=== PATIENT | male | born 1995 | race African-American/Black ===

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

== ENCOUNTER 2017-05-11 07:21 | Emergency (ER) | payer OTHER ==
[2017-05-11 08:23] LABS: Hematocrit 41 % (42-52); Hemoglobin 13.8 g/dl (14.0-18.0); Mean Corpuscular HGB Conc 33 g/dl (31-36); Mean Corpuscular Hemoglobin 26 pg (27-31); Mean Corpuscular Volume 79 fL (80-94); Mean Platelet Volume 8 um3 (7.4-10.4); Red Blood Count 5.24 10^6/ul (4.0-5.4); Red Cell Distribution Width 13 % (10.5-15); White Blood Count 3.6 10^3/ul (3.5-10.8)
--- NOTE | 2017-05-11 08:24 | RAD ---
INDICATION: Chest pain COMPARISON: Comparison chest x-ray February 03, 2016 TECHNIQUE: PA and lateral views of the chest were obtained. FINDINGS: The heart and mediastinum are normal in size and contour. The lungs are grossly clear. There is no evidence of large pleural effusion. Similar to the prior chest x-ray the thoracolumbar spine exhibits a proximally 16 degrees of dextroconvex scoliosis with the apex at the T11 vertebral body. There is no radiographic evidence of free air beneath the diaphragm IMPRESSION: STABLE THORACOLUMBAR SCOLIOSIS WITHOUT RADIOGRAPHIC EVIDENCE OF ACUTE CARDIOPULMONARY ABNORMALITY.
[2017-05-11 08:38] LABS: Albumin 4.7 g/dL (3.2-5.2); Calcium 9.9 mg/dL (8.6-10.3); EGFR African American 95.7 (>60); EGFR Non-African American 74.4 (>60); Globulin 2.9 g/dL (2-4); Potassium 3.4 mmol/L (3.5-5.0); Total Bilirubin 0.6 mg/dL (0.2-1.0); Total Protein 7.6 g/dL (6.4-8.9)
[2017-05-11] MEDS ORDERED: Potassium Chlor TAB* 20 MEQ TAB.ER PO ONE (09:15)
[2017-05-11] MEDS ORDERED: Ketorolac INJ* 30 MG/ML 1 ML VIAL IV PUSH ONE (09:16)
[2017-05-11 10:02] VITALS: BP 120/50
--- NOTE | 2017-05-14 13:32 | ED ---
Aguila Chavez Thomas, scribed for Keith Miranda MD on 05/11/17 at 0743 . HPI Chest Pain - HPI Summary HPI Summary: The pt is a 21 y/o M presenting to the ED c/o CP that began two days ago and woke him up from sleeping. The pain is diffuse. The pain is sporadic. The pain is described as sharp. The pain is aggravated by deep breaths. It is alleviated by nothing. 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 Pt denies myalgia, nasal discharge, or cold symptoms. - History of Current Complaint Chief Complaint: EDChestPainROMI Time Seen by Provider: 05/11/17 07:28 Hx Obtained From: Patient Onset/Duration: Started Days Ago - 2, Still Present Timing: Intermittent Current Severity: None Pain Intensity: 0 Pain Scale Used: 0-10 Numeric Chest Pain Location: Diffuse Chest Pain Radiates: No Character: Sharp/Stabbing Aggravating Factor(s): Deep Breaths Alleviating Factor(s): Nothing Associated Signs and Symptoms: Positive: Chest Pain. Negative: Other: - myalgia , nasal discharge, cold symptoms - Allergy/Home Medications Allergies/Adverse Reactions: Allergies Allergy/AdvReac Type Severity Reaction Status Date / Time No Known Allergies Allergy Verified 02/03/16 07:32 Home Medications: Home Medications NK [No Home Medications Reported] 05/11/17 [History Confirmed 05/11/17] PMH/Surg Hx/FS Hx/Imm Hx Previously Healthy: Yes Endocrine/Hematology History: Denies: Hx Anemia Cardiovascular History: Denies: Hx Hypertension, Hx Myocardial Infarction Respiratory History: Denies: Hx Asthma - Surgical History Surgery Procedure, Year, and Place: none Infectious Disease History: No Infectious Disease History: Denies: Traveled Outside the [place] in Last 30 Days - Family History Known Family History: Positive: Other - Patient denies relevant FHx - Social History Occupation: Student Lives: Dormitory/Roommates Alcohol Use: None Hx Substance Use: No Substance Use Type: Reports: None Hx Tobacco Use: No Smoking Status (MU): Never Smoked Tobacco Review of Systems Negative: Other - cold symptoms Negative: Nasal Discharge Positive: Chest Pain Negative: Myalgia All Other Systems Reviewed And Are Negative: Yes Physical Exam - Summary Physical Exam Summary: VITAL SIGNS: Reviewed. GENERAL: Patient is a well-developed and nourished male who is lying comfortable in the stretcher. Patient is not in any acute respiratory distress. HEAD AND FACE: No signs of trauma. No ecchymosis, hematomas or skull depressions. No sinus tenderness. EYES: PERRLA, EOMI x 2, No injected conjunctiva, no nystagmus. EARS: Hearing grossly intact. Ear canals and tympanic membranes are within normal limits. MOUTH: Oropharynx within normal limits. NECK: Supple, trachea is midline, no adenopathy, no JVD, no carotid bruit, no c- spine tenderness, neck with full ROM. CHEST: Symmetric, no tenderness at palpation LUNGS: Clear to auscultation bilaterally. No wheezing or crackles. CVS: Regular rate and rhythm, S1 and S2 present, no murmurs or gallops appreciated. ABDOMEN: Soft, non-tender. No signs of distention. No rebound no guarding, and no masses palpated. Bowel sounds are normal. BACK: Scoliosis is noted. EXTREMITIES: FROM in all major joints, no edema, no cyanosis or clubbing. NEURO: Alert and oriented x 3. No acute neurological deficits. Speech is normal and follows commands. SKIN: Dry and warm Triage Information Reviewed: Yes Vital Signs On Initial Exam: Initial Vitals Temp Pulse Resp BP Pulse Ox 98.8 F 78 18 148/66 100 05/11/17 07:25 05/11/17 07:25 05/11/17 07:25 05/11/17 07:25 05/11/17 07:25 Vital Signs Reviewed: Yes Diagnostics - Vital Signs Vital Signs Temp Pulse Resp BP Pulse Ox 05/11/17 07:25 98.8 F 78 18 148/66 100 - Laboratory Lab Results: Lab Results 05/11/17 05/11/17 05/11/17 Range/Units 08:10 08:10 08:10 WBC 3.6 (3.5-10.8) 10^3/ul RBC 5.24 (4.0-5.4) 10^6/ul Hgb 13.8 L (14.0-18.0) g/dl Hct 41 L (42-52) % MCV 79 L (80-94) fL MCH 26 L (27-31) pg MCHC 33 (31-36) g/dl RDW 13 (10.5-15) % Plt Count 205 (150-450) 10^3/ul MPV 8 (7.4-10.4) um3 Neut % (Auto) 37.9 L (38-83) % Lymph % (Auto) 46.6 (25-47) % [place] % (Auto) 12.8 H (1-9) % Eos % (Auto) 1.6 (0-6) % Baso % (Auto) 1.1 (0-2) % Absolute Neuts (auto) 1.4 L (1.5-7.7) 10^3/ul Absolute Lymphs (auto) 1.7 (1.0-4.8) 10^3/ul Absolute Monos (auto) 0.5 (0-0.8) 10^3/ul Absolute Eos (auto) 0.1 (0-0.6) 10^3/ul Absolute Basos (auto) 0 (0-0.2) 10^3/ul Absolute Nucleated RBC 0.01 10^3/ul Nucleated RBC % 0.2 D-Dimer, Quantitative < 200 (Less Than 230) ng/mL Sodium 137 (133-145) mmol/L Potassium 3.4 L (3.5-5.0) mmol/L Chloride 100 L (101-111) mmol/L Carbon Dioxide 28 (22-32) mmol/L Anion Gap 9 (2-11) mmol/L BUN 10 (6-24) mg/dL Creatinine 1.25 H (0.67-1.17) mg/dL Est GFR ( Amer) 95.7 (>60) Est GFR (Non-Af Amer) 74.4 (>60) BUN/Creatinine Ratio 8.0 (8-20) Glucose 96 (70-100) mg/dL Calcium 9.9 (8.6-10.3) mg/dL Total Bilirubin 0.60 (0.2-1.0) mg/dL AST 16 (13-39) U/L ALT 9 (7-52) U/L Alkaline Phosphatase 79 (34-104) U/L Total Creatine Kinase 220 (10-223) U/L Total Protein 7.6 (6.4-8.9) g/dL Albumin 4.7 (3.2-5.2) g/dL Globulin 2.9 (2-4) g/dL Albumin/Globulin Ratio 1.6 (1-3) Result Diagrams: 05/11/17 08:10 05/11/17 08:10 Lab Statement: Any lab studies that have been ordered have been reviewed, and results considered in the medical decision making process. - Radiology CXR Xray Interpretation: No Acute Changes - STABLE THORACOLUMBAR SCOLIOSIS WITHOUT RADIOGRAPHIC EVIDENCE OF ACUTE CARDIOPULMONARY ABNORMALITY. ED physician has reviewed this report and agrees. Radiology Interpretation Completed By: Radiologist - EKG 07:47 Cardiac Rate: Bradycardia EKG Rhythm: Sinus Bradycardia EKG Interpretation: 58 BPM. Normal axis. Similar to previous EKG on 02/03/16. Chest Pain Course/Dx - Course Assessment/Plan: The pt is a 21 y/o M presenting to the ED c/o CP that began two days ago and woke him up from sleeping. The pain is diffuse. The pain is sporadic. The pain is described as sharp. The pain is aggravated by deep breaths. It is alleviated by nothing. 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 Pt denies myalgia, nasal discharge, or cold symptoms. Test results show a slight anemia, potassium of 3.4, and D-dimer less than 200, therefore there is no suspicion for pulmonary embolism. CXR shows STABLE THORACOLUMBAR SCOLIOSIS WITHOUT RADIOGRAPHIC EVIDENCE OF ACUTE CARDIOPULMONARY ABNORMALITY. In the ED course, the patient was given Toradol for the pain, hydrated, and his symptoms improved. Therefore, the patient will be discharged home with follow up by primary care provider. The patient is hemodynamically stable and alert and oriented x3. - Diagnoses Provider Diagnoses: Chest pain Discharge - Discharge Plan Condition: Stable Disposition: HOME Patient Education Materials: Chest Pain (ED) [place] [facility] [place] - 3 Days Additional Instructions: Follow up at [facility] in three days. Return to the emergency department for any new or worsening symptoms. The documentation as recorded by the Aguila young Thomas accurately reflects the service I personally performed and the decisions made by Ruben coronado Walter, MD.
== END 2017-05-11 10:01 | disposition home or self-care (01) ==
LOC: ED 07:21
DX: R07.89 Other chest pain (principal); R00.1 Bradycardia, unspecified; M41.9 Scoliosis, unspecified
CPT/HCPCS: 36415; 71020; 80053; 82550; 85025; 85379; 93005; 96374; 99284; A9270-GY; J1885

== ENCOUNTER 2018-11-15 13:25 | Emergency (ER) | payer OTHER ==
[2018-11-15 15:14] VITALS: BP 129/58
--- NOTE | 2018-11-15 17:18 | ED ---
HPI Chest Pain - HPI Summary HPI Summary: Patient presenting with pain to right lower rib cage since yesterday. Patient states that he was lying on the couch yesterday and feels he strained a muscle to his right lower ribs. Patient states this has happened before. Patient states that pain is worse with moving and touching area. Patient states he took a dose of Tylenol and pain has improved. Patient states he wanted to get checked out to make sure everything is okay. Patient otherwise denies abdominal pain, fever, vomiting, diarrhea, cough, fever, sore throat, ear pain. Symptoms are mild in severity. Touching affected area and movement makes symptoms worse. Rest and Tylenol makes sxs better. - History of Current Complaint Chief Complaint: EDAbdPain Time Seen by Provider: 11/15/18 14:16 Hx Obtained From: Patient Pain Intensity: 3 Pain Scale Used: 0-10 Numeric - Allergy/Home Medications Allergies/Adverse Reactions: Allergies Allergy/AdvReac Type Severity Reaction Status Date / Time No Known Allergies Allergy Verified 11/15/18 13:30 PMH/Surg Hx/FS Hx/Imm Hx Previously Healthy: Yes Endocrine/Hematology History: Denies: Hx Anemia Cardiovascular History: Denies: Hx Hypertension, Hx Myocardial Infarction Respiratory History: Denies: Hx Asthma - Surgical History Surgery Procedure, Year, and Place: none Infectious Disease History: No Infectious Disease History: Denies: Traveled Outside the [place] in Last 30 Days - Family History Known Family History: Positive: None, Other - Patient denies relevant FHx, Non- Contributory - Social History Occupation: Student Lives: Dormitory/Roommates Alcohol Use: None Hx Substance Use: No Substance Use Type: Reports: None Hx Tobacco Use: No Smoking Status (MU): Never Smoked Tobacco Review of Systems Constitutional: Negative Negative: Fever, Chills ENT: Negative Cardiovascular: Negative Negative: Palpitations, Chest Pain Respiratory: Negative Negative: Shortness Of Breath, Cough Gastrointestinal: Negative Negative: Abdominal Pain, Vomiting, Diarrhea, Nausea Genitourinary: Negative Positive: Other - pain to right lower ribcage Skin: Negative Negative: Bruising Neurological: Negative All Other Systems Reviewed And Are Negative: Yes Physical Exam Triage Information Reviewed: Yes Vital Signs On Initial Exam: Initial Vitals Temp Pulse Resp BP Pulse Ox 98.8 F 78 16 122/73 97 11/15/18 13:27 11/15/18 13:27 11/15/18 13:27 11/15/18 13:27 11/15/18 13:27 Vital Signs Reviewed: Yes Appearance: Positive: Well-Appearing - Pt. sitting up in bed in NAD. Skin: Positive: Warm, Dry Head/Face: Positive: Normal Head/Face Inspection Eyes: Positive: Normal, EOMI, KRISHNA, Conjunctiva Clear ENT: Positive: Pharynx normal, TMs normal Neck: Positive: Supple Respiratory/Lung Sounds: Positive: Clear to Auscultation, Breath Sounds Present Cardiovascular: Positive: Normal, RRR Abdomen Description: Positive: Nontender, Soft Musculoskeletal: Positive: Normal, Strength/ROM Intact, Other - Pain along palpation to posterior aspect of right lower ribs. No ecchymosis or edema or rash. Neurological: Positive: Normal, CN Intact II-III Psychiatric: Positive: Affect/Mood Appropriate Diagnostics - Vital Signs Vital Signs Temp Pulse Resp BP Pulse Ox 11/15/18 15:13 99.0 F 71 18 129/58 99 11/15/18 13:27 98.8 F 78 16 122/73 97 - Laboratory Lab Statement: Any lab studies that have been ordered have been reviewed, and results considered in the medical decision making process. Chest Pain Course/Dx - Course Course Of Treatment: Patient presenting with right lower reproducible chest wall tenderness without injury. He is afebrile with normal vital signs. Exam consistent with musculoskeletal pain.. Advised patient to continue Tylenol or Motrin for pain as directed. Ice intermittently. We'll follow up with [facility] if pain persists to return to the ER symptoms change or worsen. Patient understands and agrees with plan. - Chest Pain Differential Diagnosis/HQI/PQRI: Chest Wall, GI Disease, Lower Respiratory Infection, Pulmonary Embolism - Diagnoses Provider Diagnoses: Chest wall pain Discharge - Sign-Out/Discharge Documenting (check all that apply): Patient Departure Patient Received Moderate/Deep Sedation with Procedure: No - Discharge Plan Condition: Good Disposition: HOME Patient Education Materials: Muscle Strain (ED) Referrals: [facility] [Outside] Additional Instructions: Follow up with the [facility] if pain persist Ice intermittently Tylenol or Motrin for pain as directed Return to ER if symptoms change or worsen - Billing Disposition and Condition Condition: GOOD Disposition: Home
== END 2018-11-15 15:13 | disposition home or self-care (01) ==
LOC: ED 13:25
DX: R07.89 Other chest pain (principal)
CPT/HCPCS: 99281

== ENCOUNTER 2018-12-23 00:30 | Emergency (ER) | payer OTHER ==
--- NOTE | 2018-12-23 01:33 | ED ---
Upper Extremity Pain - HPI Summary HPI Summary: Pt is a 23 y/o M presenting to the ED with a chief complaint of numbness on his LUE. He stated he had some numbness in the L hand that went away, and then also noted numbness in his mid L arm and L shoulder. He also noted that his veins were enlarged. He denies neck pain. - History of Current Complaint Chief Complaint: EDExtremityUpper Stated Complaint: ODD FEELING IN HAND PER PT Time Seen by Provider: 12/23/18 01:23 Hx Obtained From: Patient Mechanism Of Injury: Unknown Onset/Duration: Started Hours Ago, Still Present Timing: Constant, Lasting Hours Severity Initially: Mild Severity Currently: None Pain Location: Shoulder, Elbow, Hand Aggravating Factor(s): Nothing Alleviating Factor(s): Nothing Associated Signs & Symptoms: Positive: Numbness/Tingling, Other - vein enlargment - Allergies/Home Medications Allergies/Adverse Reactions: Allergies Allergy/AdvReac Type Severity Reaction Status Date / Time No Known Allergies Allergy Verified 12/23/18 01:25 PMH/Surg Hx/FS Hx/Imm Hx Previously Healthy: Yes Endocrine/Hematology History: Denies: Hx Anemia Cardiovascular History: Denies: Hx Hypertension, Hx Myocardial Infarction Respiratory History: Denies: Hx Asthma Musculoskeletal History: Reports: Hx Scoliosis - Surgical History Surgery Procedure, Year, and Place: none Infectious Disease History: No Infectious Disease History: Denies: Traveled Outside the [place] in Last 30 Days - Family History Known Family History: Negative: Cardiac Disease, Renal Disease - Social History Alcohol Use: Occasionally Hx Substance Use: No Substance Use Type: Reports: None Hx Tobacco Use: No Smoking Status (MU): Never Smoked Tobacco Type: eCigarettes Review of Systems Positive: Other - enlarged veins in L hand Negative: Other - neck pain Positive: Numbness All Other Systems Reviewed And Are Negative: Yes Physical Exam Triage Information Reviewed: Yes Vital Signs On Initial Exam: Initial Vitals Temp Pulse Resp BP Pulse Ox 99.7 F 86 16 133/80 99 12/23/18 00:30 12/23/18 00:30 12/23/18 00:30 12/23/18 00:30 12/23/18 00:30 Vital Signs Reviewed: Yes Diagnostics - Vital Signs Vital Signs Temp Pulse Resp BP Pulse Ox 12/23/18 00:30 99.7 F 86 16 133/80 99 - Laboratory Lab Statement: Any lab studies that have been ordered have been reviewed, and results considered in the medical decision making process. Course/Dx - Course Course Of Treatment: Pt is a 23 y/o M presenting to the ED with a chief complaint of numbness on his LUE. He stated he had some numbness in the L hand that went away, and then also noted numbness in his mid L arm and L shoulder. He also noted that his veins were enlarged. He denies neck pain. On physical exam, the pt has full ROM in the LUE. Pt will be d/c'ed with dx of numbness that is non-dermatomal and that has since resolved. He is stable and agreeable with this plan. - Diagnoses Provider Diagnoses: Numbness Discharge - Sign-Out/Discharge Documenting (check all that apply): Patient Departure Patient Received Moderate/Deep Sedation with Procedure: No - Discharge Plan Condition: Good Disposition: HOME Patient Education Materials: Paresthesia (ED) Referrals: [facility] [Outside] - Billing Disposition and Condition Condition: GOOD Disposition: Home - Attestation Statements Document Initiated by Baronibe: Yes Documenting Scribe: Jacqueline Rascon Provider For Whom Tamika is Documenting (Include Credential): Edwin Daniel MD. Scribe Attestation: Jacqueline Chavez scribed for Edwin Daniel MD. on 12/23/18 at 0625. Scribe Documentation Reviewed: Yes Provider Attestation: The documentation as recorded by the Jacqueline young accurately reflects the service I personally performed and the decisions made by , Edwin Daniel MD. Status of Scribe Document: Viewed
[2018-12-23 02:02] VITALS: BP 124/78
== END 2018-12-23 02:02 | disposition home or self-care (01) ==
LOC: ED 00:30
DX: R20.0 Anesthesia of skin (principal)
CPT/HCPCS: 99281